=== PATIENT | male | born 1935 | race Caucasian/White ===

== ENCOUNTER 2019-12-16 10:11 | Inpatient (IN) | payer MEDICARE, MEDICAID ==
[~2019-12-16] VITALS: Ht 172.7 cm; Wt 66.2 kg
[2019-12-16] MEDS ORDERED: SODIUM CHLORIDE 0.9% 500 ML IV ONE (11:16)
[2019-12-16 11:21] LABS: BASOPHILS % 0.5 % (0.0-2.0); EOSINOPHILS % 0.1 % (0.0-5.0); HEMATOCRIT. 36.7 % (42.0-52.0); HEMOGLOBIN. 12.3 g/dL (14.0-18.0); LYMPHOCYTES % 21.7 % (20.0-50.0); MEAN CORPUSCULAR HEMOGLOBIN 29.7 pg (28.0-32.0); MEAN CORPUSCULAR VOLUME 88.5 fL (80.0-94.0); MEAN PLATELET VOLUME 9.3 fl (7.4-10.4); MONOCYTES % 10.1 % (2.0-8.0); NEUTROPHILS % 67.6 % (40.0-76.0); PLATELET 168 x1000/uL (130-400); RED BLOOD CELL COUNT 4.15 mill/uL (4.7-6.1); RED CELL DISTRIBUTION WIDTH 14.5 % (11.6-14.6)
[2019-12-16 11:27] LABS: CHLORIDE 107 mEq/L (98-107)
[2019-12-16] MEDS ORDERED: LEVOFLOXACIN 500MG PREMIX 100 ML IV ONE (11:30)
[2019-12-16 11:38] LABS: D-DIMER 16.7 mg/L FEU (<0.50); PROTHROMBIN TIME 11.3 sec (9.6-11.0)
[2019-12-16 11:47] LABS: CREATINE KINASE 1558 IU/L (39-308)
[2019-12-16] MEDS ORDERED: ACETAMINOPHEN 325MG TABLET PO PRN (12:45)
[2019-12-16] MEDS ORDERED: POTASSIUM CHLORIDE 20MEQ TABLET SR PO NR (12:45)
[2019-12-16] MEDS ORDERED: METOCLOPRAMIDE HCL 10MG/2ML VIAL IV PRN (12:45)
[2019-12-16 13:54] LABS: CLARITY URINE CLEAR (CLEAR); COLOR URINE DARK YELLOW (YELLOW); KETONES URINE NEGATIVE (NEGATIVE); LEUKOCYTE ESTERASE URINE 1+ (NEGATIVE); NITRITE URINE NEGATIVE (NEGATIVE); OCCULT BLOOD URINE 1+ (NEGATIVE); PH URINE 5.5 (4.5-8.0); PROTEIN URINE 2+ (NEGATIVE); SPECIFIC GRAVITY URINE 1.024 (1.005-1.030)
[2019-12-16] MEDS ORDERED: AZITHROMYCIN 500 MG TABLET PO NR (14:00)
[2019-12-16] MEDS ORDERED: CEFTRIAXONE 1 G PREMIX 50 ML IV NR (14:00)
[2019-12-16] MEDS ORDERED: SODIUM CHLORIDE 0.45% 1,000 ML IV SCH (15:30)
[2019-12-17] MEDS: LORAZEPAM 2MG/ML CPJ IV PRN ×2 (00:05→20:00)
[2019-12-17 06:27] VITALS: BP 112/68
[2019-12-17] MEDS ORDERED: DOCU250C69 MT (06:32)
[2019-12-17] MEDS ORDERED: DONE5TAB7 PO (06:33)
[2019-12-17] MEDS ORDERED: PSYL575P22 MT (06:35)
[2019-12-17] MEDS ORDERED: MULT-18 MT (06:35)
[2019-12-17] MEDS ORDERED: AMLO5TAB88 PO (06:35)
[2019-12-17] MEDS: AZITHROMYCIN 500 MG TABLET PO SCH (09:06)
[2019-12-17] MEDS: ENOXAPARIN 40MG/0.4ML SYR SUBCUT SCH (09:06)
[2019-12-17] MEDS: SODIUM CHLORIDE 0.45% 1,000 ML IV SCH (09:07)
[2019-12-17] MEDS ORDERED: POTASSIUM CHLORIDE 20MEQ TABLET SR PO SCH (10:00)
[2019-12-17 10:14] VITALS: BP 144/80
[2019-12-17] MEDS ORDERED: VANCOMYCIN 1500MG in DEXTROSE 5% WATER 250ML IV SCH (12:00)
[2019-12-17 13:05] VITALS: BP 115/73
[2019-12-17] MEDS ORDERED: CEFTRIAXONE 1,000 MG in DEXTROSE 5% WATER 50 ML IV SCH (17:00)
[2019-12-17 17:53] VITALS: BP 129/79
[2019-12-17] MEDS: CEFTRIAXONE 1,000 MG in DEXTROSE 5% WATER 50 ML IV SCH (18:07)
[2019-12-17 20:00] VITALS: BP 143/71
[2019-12-17 23:45] LABS: CHLORIDE 110 mEq/L (98-107)
[2019-12-17 23:54] LABS: CREATINE KINASE 484 IU/L (39-308)
[2019-12-18] VITALS: BP 149/46
[2019-12-18 04:00] VITALS: BP 162/49
[2019-12-18] MEDS: SODIUM CHLORIDE 0.45% 1,000 ML IV SCH ×2 (05:08→21:34)
[2019-12-18] MEDS ORDERED: VANCOMYCIN 1 G PREMIX 200 ML IV SCH (06:00)
[2019-12-18] MEDS: LORAZEPAM 2MG/ML CPJ IV PRN ×2 (07:29→21:34)
[2019-12-18 08:00] VITALS: BP 129/74
[2019-12-18] MEDS: AZITHROMYCIN 500 MG TABLET PO SCH (08:06)
[2019-12-18] MEDS: ENOXAPARIN 40MG/0.4ML SYR SUBCUT SCH (08:07)
[2019-12-18 12:00] VITALS: BP 152/77
[2019-12-18] MEDS ORDERED: LORAZEPAM 2MG/ML CPJ IV PRN (13:00)
[2019-12-18] MEDS: CEFTRIAXONE 1,000 MG in DEXTROSE 5% WATER 50 ML IV SCH (16:00)
[2019-12-18] MEDS ORDERED: POTASSIUM CHLORIDE 20MEQ/PACKET PO SCH (17:00)
[2019-12-18] MEDS ORDERED: LORAZEPAM 2MG/ML CPJ IV NR (17:30)
[2019-12-18 20:00] VITALS: BP 127/70
[2019-12-19] VITALS: BP 149/77
[2019-12-19] MEDS: LORAZEPAM 2MG/ML CPJ IV PRN (01:46)
[2019-12-19 04:00] VITALS: BP 110/67
[2019-12-19 08:00] VITALS: BP 156/69
[2019-12-19] MEDS: RISPERIDONE 1MG TABLET PO SCH (08:47)
[2019-12-19] MEDS: ENOXAPARIN 40MG/0.4ML SYR SUBCUT SCH (08:47)
[2019-12-19] MEDS: AZITHROMYCIN 500 MG TABLET PO SCH (08:47)
[2019-12-19 09:48] LABS: CHLORIDE 108 mEq/L (98-107)
[2019-12-19 12:00] VITALS: BP 112/66
[2019-12-19 16:00] VITALS: BP 132/87
[2019-12-19] MEDS ORDERED: POTASSIUM CHLORIDE 20MEQ/PACKET PO SCH (17:00)
[2019-12-19] MEDS: SODIUM CHLORIDE 0.45% 1,000 ML IV SCH (17:09)
[2019-12-19] MEDS: CEFTRIAXONE 1,000 MG in DEXTROSE 5% WATER 50 ML IV SCH (17:09)
[2019-12-19 20:00] VITALS: BP 137/76
[2019-12-20] VITALS: BP 138/90
[2019-12-20 04:00] VITALS: BP 117/62
[2019-12-20] MEDS: LORAZEPAM 2MG/ML CPJ IV PRN ×2 (06:36→15:41)
[2019-12-20 08:00] VITALS: BP 124/78
[2019-12-20] MEDS: RISPERIDONE 1MG TABLET PO SCH (10:27)
[2019-12-20] MEDS: AZITHROMYCIN 500 MG TABLET PO SCH (10:27)
[2019-12-20] MEDS: ENOXAPARIN 40MG/0.4ML SYR SUBCUT SCH (10:28)
[2019-12-20] MEDS: SODIUM CHLORIDE 0.45% 1,000 ML IV SCH ×2 (10:29→14:00)
[2019-12-20 12:00] VITALS: BP 120/84
[2019-12-20 16:00] VITALS: BP 131/76
[2019-12-20] MEDS ORDERED: CEFTRIAXONE 1 G PREMIX 50 ML IV SCH (17:00)
[2019-12-20 20:00] VITALS: BP 124/69
[2019-12-21] VITALS: BP 124/57
[2019-12-21 04:00] VITALS: BP 134/74
[2019-12-21 08:00] VITALS: BP 136/51
[2019-12-21] MEDS: ENOXAPARIN 40MG/0.4ML SYR SUBCUT SCH (08:48)
[2019-12-21] MEDS: RISPERIDONE 1MG TABLET PO SCH (08:48)
[2019-12-21 12:00] VITALS: BP 106/55
[2019-12-21] MEDS: SODIUM CHLORIDE 0.45% 1,000 ML IV SCH (13:32)
[2019-12-21] MEDS: LORAZEPAM 2MG/ML CPJ IV PRN (14:13)
[2019-12-21 16:00] VITALS: BP 166/79
[2019-12-21 20:00] VITALS: BP 127/66
[2019-12-22] VITALS: BP 107/62
[2019-12-22] MEDS: LORAZEPAM 2MG/ML CPJ IV PRN (03:19)
[2019-12-22 04:00] VITALS: BP 147/68
[2019-12-22] MEDS: SODIUM CHLORIDE 0.45% 1,000 ML IV SCH (06:00)
[2019-12-22 08:00] VITALS: BP 154/77
[2019-12-22] MEDS: RISPERIDONE 1MG TABLET PO SCH ×2 (09:00→09:05)
[2019-12-22] MEDS: ENOXAPARIN 40MG/0.4ML SYR SUBCUT SCH ×2 (09:00→09:06)
[2019-12-22 12:00] VITALS: BP 136/70
[2019-12-22 16:00] VITALS: BP 135/58
[2019-12-22 20:51] VITALS: BP 106/61
[2019-12-22] MEDS ORDERED: POTASSIUM CHLORIDE 20MEQ TABLET SR PO NR (23:00)
[2019-12-23 00:28] VITALS: BP 110/59
[2019-12-23] MEDS: SODIUM CHLORIDE 0.45% 1,000 ML IV SCH ×2 (03:29→22:00)
[2019-12-23 04:00] VITALS: BP 107/63
[2019-12-23 08:00] VITALS: BP 115/50
[2019-12-23] MEDS ORDERED: NA PHOS,M-B/NA PHOS,DI-BA ENEMA 118ML PR NR (08:30)
[2019-12-23] MEDS: ENOXAPARIN 40MG/0.4ML SYR SUBCUT SCH (09:03)
[2019-12-23] MEDS: RISPERIDONE 1MG TABLET PO SCH (09:03)
[2019-12-23 12:00] VITALS: BP 116/62
[2019-12-23 16:00] VITALS: BP 109/72
[2019-12-23 20:00] VITALS: BP 108/69
[2019-12-23] MEDS: LORAZEPAM 2MG/ML CPJ IM PRN (20:31)
[2019-12-24] VITALS: BP 132/50
[2019-12-24 04:00] VITALS: BP 137/52
[2019-12-24 08:00] VITALS: BP 120/63
[2019-12-24] MEDS: ENOXAPARIN 40MG/0.4ML SYR SUBCUT SCH (08:42)
[2019-12-24] MEDS: RISPERIDONE 1MG TABLET PO SCH (08:42)
[2019-12-24] MEDS: LORAZEPAM 2MG/ML CPJ IM PRN (10:56)
[2019-12-24 12:00] VITALS: BP 133/73
[2019-12-24] MEDS: HALOPERIDOL LACTATE 5MG/ML VIAL IM PRN (15:44)
[2019-12-24 16:00] VITALS: BP 135/64
[2019-12-24] MEDS: SODIUM CHLORIDE 0.45% 1,000 ML IV SCH (17:03)
[2019-12-24 20:50] VITALS: BP 123/69
[2019-12-25 00:50] VITALS: BP 130/66
[2019-12-25 04:00] VITALS: BP 132/75
[2019-12-25 05:25] LABS: CHLORIDE 105 mEq/L (98-107)
[2019-12-25 08:00] VITALS: BP 141/82
[2019-12-25] MEDS: ENOXAPARIN 40MG/0.4ML SYR SUBCUT SCH (09:03)
[2019-12-25 12:00] VITALS: BP 174/76
[2019-12-25 12:26] LABS: BASOPHILS % 0.8 % (0.0-2.0); EOSINOPHILS % 0.1 % (0.0-5.0); HEMOGLOBIN. 12.7 g/dL (14.0-18.0); LYMPHOCYTES % 17.4 % (20.0-50.0); MEAN CORPUSCULAR HEMOGLOBIN 29.6 pg (28.0-32.0); MEAN CORPUSCULAR VOLUME 86.4 fL (80.0-94.0); MEAN PLATELET VOLUME 7.8 fl (7.4-10.4); MONOCYTES % 8.5 % (2.0-8.0); NEUTROPHILS % 73.2 % (40.0-76.0); PLATELET 381 x1000/uL (130-400); RED BLOOD CELL COUNT 4.28 mill/uL (4.7-6.1); RED CELL DISTRIBUTION WIDTH 14.1 % (11.6-14.6)
[2019-12-25 16:00] VITALS: BP 163/69
[2019-12-25] MEDS ORDERED: POTASSIUM CHLORIDE 20MEQ TABLET SR PO NR (16:30)
[2019-12-25] MEDS ORDERED: CLONIDINE 0.1MG TABLET PO PRN (16:30)
[2019-12-25 20:00] VITALS: BP 115/70
[2019-12-25] MEDS: SODIUM CHLORIDE 0.45% 1,000 ML IV SCH (20:21)
[2019-12-26 00:13] VITALS: BP 91/45
[2019-12-26 04:00] VITALS: BP 106/64
[2019-12-26 08:00] VITALS: BP 133/77
[2019-12-26] MEDS: ENOXAPARIN 40MG/0.4ML SYR SUBCUT SCH (08:38)
[2019-12-26 12:13] VITALS: BP 127/66
[2019-12-26] MEDS ORDERED: LORAZEPAM 2MG/ML CPJ IM PRN (13:30)
[2019-12-26] MEDS: HALOPERIDOL LACTATE 5MG/ML VIAL IM PRN (15:46)
[2019-12-26] MEDS: SODIUM CHLORIDE 0.45% 1,000 ML IV SCH (15:54)
[2019-12-26 16:31] VITALS: BP 94/68
[2019-12-26 20:00] VITALS: BP 107/64
[2019-12-27] VITALS: BP 119/92
[2019-12-27 04:00] VITALS: BP 96/59
[2019-12-27 08:00] VITALS: BP 95/61
[2019-12-27] MEDS: ENOXAPARIN 40MG/0.4ML SYR SUBCUT SCH (08:57)
[2019-12-27] MEDS: SODIUM CHLORIDE 0.45% 1,000 ML IV SCH (09:09)
[2019-12-27 12:00] VITALS: BP_SYST 110; BP_SYST 97; BP_DIAS 59; BP_DIAS 60
[2019-12-27 16:00] VITALS: BP 110/59
[2019-12-27 20:00] VITALS: BP 116/53
[2019-12-28] VITALS: BP 103/60
[2019-12-28] MEDS: SODIUM CHLORIDE 0.45% 1,000 ML IV SCH ×2 (02:00→20:52)
[2019-12-28 04:00] VITALS: BP 95/54
[2019-12-28 08:00] VITALS: BP 106/69
[2019-12-28] MEDS: ENOXAPARIN 40MG/0.4ML SYR SUBCUT SCH (09:45)
[2019-12-28 12:00] VITALS: BP 115/70
[2019-12-28] MEDS ORDERED: BISACODYL 10MG SUPP PR SCH (13:30)
[2019-12-28 16:00] VITALS: BP 130/78
[2019-12-28] MEDS ORDERED: LORAZEPAM 2MG/ML CPJ IV PRN (19:00)
[2019-12-28 20:00] VITALS: BP 108/39
[2019-12-28 20:50] LABS: CHLORIDE 103 mEq/L (98-107); EOSINOPHILS % 0.2 % (0.0-5.0); HEMATOCRIT. 36.1 % (42.0-52.0); HEMOGLOBIN. 12.1 g/dL (14.0-18.0); LYMPHOCYTES % 14.8 % (20.0-50.0); MEAN CORPUSCULAR VOLUME 86.3 fL (80.0-94.0); MEAN PLATELET VOLUME 7.8 fl (7.4-10.4); MONOCYTES % 7.8 % (2.0-8.0); NEUTROPHILS % 76.2 % (40.0-76.0); PLATELET 368 x1000/uL (130-400); RED BLOOD CELL COUNT 4.19 mill/uL (4.7-6.1); RED CELL DISTRIBUTION WIDTH 14.2 % (11.6-14.6)
[2019-12-29] VITALS: BP 103/57
[2019-12-29 04:00] VITALS: BP 123/72
[2019-12-29 08:00] VITALS: BP 152/84
[2019-12-29] MEDS: ENOXAPARIN 40MG/0.4ML SYR SUBCUT SCH (10:09)
[2019-12-29 12:08] VITALS: BP 148/76
[2019-12-29] MEDS ORDERED: POTASSIUM CHLORIDE 20MEQ TABLET SR PO SCH (15:00)
[2019-12-29 16:00] VITALS: BP 130/88
[2019-12-29] MEDS ORDERED: POTASSIUM CHLORIDE INJ 40 MEQ in DEXT 5% WATER 250 ML IV SCH (16:00)
[2019-12-29] MEDS ORDERED: BISACODYL 10MG SUPP PR PRN (16:30)
[2019-12-29] MEDS: HALOPERIDOL LACTATE 5MG/ML VIAL IM PRN (18:04)
[2019-12-29] MEDS: SODIUM CHLORIDE 0.45% 1,000 ML IV SCH (18:38)
[2019-12-29 20:00] VITALS: BP 100/58
[2019-12-29] MEDS: LORAZEPAM 2MG/ML CPJ IV PRN (21:59)
[2019-12-30] VITALS: BP 92/65
[2019-12-30 04:00] VITALS: BP 119/74
[2019-12-30 08:03] VITALS: BP 123/71
[2019-12-30] MEDS: ENOXAPARIN 40MG/0.4ML SYR SUBCUT SCH (09:18)
[2019-12-30 11:59] VITALS: BP 127/68
[2019-12-30 16:04] VITALS: BP 128/79
[2019-12-30] MEDS: DOCUSATE SODIUM 250MG CAPSULE PO SCH (18:00)
[2019-12-30] MEDS: POTASSIUM CHLORIDE 20MEQ TABLET SR PO SCH (18:00)
[2019-12-30 20:00] VITALS: BP 121/78
[2019-12-30] MEDS: SODIUM CHLORIDE 0.45% 1,000 ML IV SCH (20:45)
[2019-12-30] MEDS: LORAZEPAM 2MG/ML CPJ IV PRN (20:45)
[2019-12-31] VITALS: BP 122/75
[2019-12-31 04:00] VITALS: BP 128/84
[2019-12-31 08:15] VITALS: BP 127/75
[2019-12-31] MEDS: DOCUSATE SODIUM 250MG CAPSULE PO SCH ×2 (09:00→09:21)
[2019-12-31] MEDS: POTASSIUM CHLORIDE 20MEQ TABLET SR PO SCH ×2 (09:00→09:21)
[2019-12-31] MEDS: ENOXAPARIN 40MG/0.4ML SYR SUBCUT SCH (09:21)
[2019-12-31 12:00] VITALS: BP 134/75
[2019-12-31 13:41] VITALS: BP 134/75
[2019-12-31 15:32] VITALS: BP 134/75
== END 2019-12-31 16:05 | DRG 871 ==
LOC: ER 10:11 → 7EST 11:05 → EDBEDREQ 11:08 → ENRESERV 12-17 04:51 → 7WST 12-31 04:16
PROVIDERS: ADMIT Internal Medicine; ATTEND Internal Medicine
DX: A41.89 Other specified sepsis (principal); U07.1 COVID-19; J12.89 Other viral pneumonia; E43 Unspecified severe protein-calorie malnutrition; J96.00 Acute respiratory failure, unspecified whether with hypoxia or hypercapnia; N17.0 Acute kidney failure with tubular necrosis; M62.82 Rhabdomyolysis; D68.59 Other primary thrombophilia; Z66 Do not resuscitate; D64.9 Anemia, unspecified; I12.9 Hypertensive chronic kidney disease with stage 1 through stage 4 chronic kidney disease, or unspecified chronic kidney disease; N18.9 Chronic kidney disease, unspecified; E87.6 Hypokalemia; F03.90 Unspecified dementia, unspecified severity, without behavioral disturbance, psychotic disturbance, mood disturbance, and anxiety; R62.7 Adult failure to thrive; Z68.22 Body mass index [BMI] 22.0-22.9, adult; Z78.1 Physical restraint status
CPT/HCPCS: 36415; 71045; 80048; 80053; 80202; 81003; 82550; 82728; 83605; 83615; 83880; 84145; 84484; 85025; 85379; 85384; 86140; 87635; 87804; 93005; 99291; J0696; J1630; J1650; J1956; J2060; J3370; J3480; J7040; J7060; U0003-CS

== ENCOUNTER 2021-07-11 03:02 | Inpatient (IN) | payer MEDICARE, MEDICAID ==
[2021-07-11] VITALS (10 sets, daily range): BP systolic 74–205; BP diastolic 47–75
[~2021-07-11] VITALS: Ht 180.3 cm; Wt 85.4 kg
[2021-07-11] MEDS ORDERED: SODIUM CHLORIDE 0.9% 1000ML BAG (SEPSIS BOLUS) IV ONE (04:00)
[2021-07-11] MEDS ORDERED: PROPOFOL 10MG/ML 100ML 100 ML IV SCH (04:00)
[2021-07-11] MEDS ORDERED: VANCOMYCIN 1 G PREMIX 200 ML IV ONE (04:00)
[2021-07-11] MEDS ORDERED: PIPERACILLIN/TAZ 3.375G PREMIX 50 ML IV ONE (04:00)
[2021-07-11] MEDS ORDERED: NOREPINEPHRINE 8MG/250ML PMX 250 ML IV ONE (04:45)
[2021-07-11] MEDS ORDERED: MIDAZOLAM 100MG/100ML PMX 100 ML IV PRN (04:45)
[2021-07-11 04:57] LABS: HEMATOCRIT. 42.9 % (42.0-52.0); HEMOGLOBIN. 13.3 g/dL (14.0-18.0); MEAN CORPUSCULAR HEMOGLOBIN 28.8 pg (28.0-32.0); MEAN CORPUSCULAR VOLUME 93.3 fL (80.0-94.0); MEAN PLATELET VOLUME 7.8 fl (7.4-10.4); PLATELET 554 x1000/uL (130-400); RED CELL DISTRIBUTION WIDTH 15.7 % (11.6-14.6)
[2021-07-11] MEDS ORDERED: NOREPINEPHRINE 8 MG in DEXTROSE 5% WATER 250 ML IV PRN ×2 (05:00→07:30)
[2021-07-11 05:03] LABS: CHLORIDE 111 mEq/L (98-107)
[2021-07-11] MEDS ORDERED: PHENYLEPHRINE 50 MG in DEXT 5% WATER 245 ML IV STA (05:20)
[2021-07-11] MEDS ORDERED: PHENYLEPHRINE 50 MG in DEXTROSE 5% WATER 250 ML IV PRN (06:00)
[2021-07-11] MEDS ORDERED: MIDAZOLAM HCL 100 MG in SODIUM CHLORIDE 0.9% 100 ML IV PRN (06:00)
[2021-07-11] MEDS ORDERED: ALBUTEROL (0.083%) 2.5MG/3ML NEB HHN STA (06:09)
[2021-07-11] MEDS ORDERED: SODIUM BICARBONATE 8.4% 1 MEQ/ML 50ML SYR IV ONE (06:15)
[2021-07-11] MEDS ORDERED: NOREPINEPHRINE 8 MG in DEXT 5% WATER 242 ML IV STA (06:19)
[2021-07-11] MEDS ORDERED: DEXTROSE 50% WATER 50ML SYRINGE IV ONE (06:30)
[2021-07-11 06:42] LABS: PLATELET ESTIMATE NORMAL
[2021-07-11] MEDS ORDERED: CLONIDINE 0.1MG TABLET PO PRN (07:15)
[2021-07-11] MEDS ORDERED: DOCUSATE SODIUM 100MG CAPSULE PO PRN (07:15)
[2021-07-11] MEDS ORDERED: PIPERACILLIN/TAZ 3.375G PREMIX 50 ML IV NR (07:15)
[2021-07-11] MEDS ORDERED: ACETAMINOPHEN 325MG TABLET PO PRN ×2 (07:15)
[2021-07-11] MEDS ORDERED: ONDANSETRON HCL 4MG/2ML INJ IV PRN (07:15)
[2021-07-11] MEDS ORDERED: MAGNESIUM/ALUMINUM HYDROXIDE/SIMETHICONE 30ML UDC PO PRN (07:15)
[2021-07-11] MEDS ORDERED: IPRATROPIUM/ALBUTEROL 0.5-3(2.5)MG/3ML NEB NEB PRN (07:15)
[2021-07-11] MEDS ORDERED: GUAIFENESIN 200MG/10ML SUGAR FREE UDC PO PRN (07:15)
[2021-07-11] MEDS ORDERED: METHYLPREDNISOLONE SOD SUCC 125 MG/2 ML VIAL IV SCH (07:30)
[2021-07-11] MEDS ORDERED: IPRATROPIUM/ALBUTEROL 0.5-3(2.5)MG/3ML NEB HHN SCH (08:00)
[2021-07-11] MEDS ORDERED: ENOXAPARIN 40MG/0.4ML SYR SUBCUT SCH (08:00)
[2021-07-11] MEDS ORDERED: NOREPINEPHRINE 8 MG in DEXT 5% WATER 242 ML IV PRN (08:00)
[2021-07-11 08:10] LABS: CLARITY URINE CLOUDY (CLEAR); COLOR URINE ORANGE (YELLOW); KETONES URINE NEGATIVE (NEGATIVE); LEUKOCYTE ESTERASE URINE 1+ (NEGATIVE); NITRITE URINE POSITIVE (NEGATIVE); OCCULT BLOOD URINE 2+ (NEGATIVE); PROTEIN URINE 1+ (NEGATIVE); SPECIFIC GRAVITY URINE 1.022 (1.005-1.030)
[2021-07-11] MEDS ORDERED: VANCOMYCIN 750 MG PREMIX 150 ML IV NR (08:30)
[2021-07-11] MEDS ORDERED: PHENYLEPHRINE 50 MG in DEXT 5% WATER 245 ML IV PRN (08:30)
[2021-07-11 08:33] LABS: *AMPHETAMINES SCREEN URINE NEGATIVE (NEGATIVE); *COCAINE SCREEN URINE NEGATIVE (NEGATIVE); METHADONE URINE SCREEN NEGATIVE (NEGATIVE); OPIATES URINE SCREEN NEGATIVE (NEGATIVE); PHENCYCLIDINE URINE SCREEN NEGATIVE (NEGATIVE)
[2021-07-11] MEDS: PHENYLEPHRINE 50 MG in DEXT 5% WATER 245 ML IV PRN ×3 (08:33→10:30)
[2021-07-11 08:34] LABS: *BARBITURATES SCREEN URINE NEGATIVE (NEGATIVE); *BENZODIAZEPINES SCREEN URINE NEGATIVE (NEGATIVE); CANNABINOID URINE SCREEN NEGATIVE (NEGATIVE)
[2021-07-11 08:41] LABS: INR 1.6; PROTHROMBIN TIME 16.8 sec (9.6-11.0)
[2021-07-11] MEDS ORDERED: VASOPRESSIN 20 UNIT in SODIUM CHLORIDE 0.9% 99 ML IV PRN (08:45)
[2021-07-11] MEDS ORDERED: PANTOPRAZOLE SODIUM 40 MG/VIAL IV SCH (09:00)
[2021-07-11] MEDS ORDERED: ASPIRIN 325MG TABLET PO SCH (09:00)
[2021-07-11] MEDS ORDERED: SODIUM CHLORIDE 0.9% 1,000 ML IV ONE (09:00)
[2021-07-11] MEDS ORDERED: SODIUM CHLORIDE 0.9% 1,000 ML IV NR (09:00)
[2021-07-11] MEDS: DEXT 5%/0.45% NACL 1000ML 1,000 ML IV SCH ×2 (09:03→17:12)
[2021-07-11] MEDS ORDERED: ETOMIDATE 2MG/ML 10ML VIAL IV ONE (09:07)
[2021-07-11] MEDS ORDERED: SODIUM CHLORIDE 0.9% 10ML VIAL ONE (09:07)
[2021-07-11] MEDS ORDERED: VECURONIUM BROMIDE 10 MG/VIAL IV ONE (09:07)
[2021-07-11 09:11] LABS: VITAMIN B12 SERUM 665 pg/mL (211-911)
[2021-07-11 09:15] LABS: FOLIC ACID (FOLATE) SERUM > 20.00 ng/mL (>5.38)
[2021-07-11 10:01] LABS: BG CARBOXYHEMOGLOBIN 0.3 % (0.5-1.5); BG DEOXYHEMOGLOBIN 12.2 % (0.0-5.0); BG FRACTION INSPIRED OXYGEN 100; BG HCO3 ACT 12.2 mmol/L (22.0-26.0); BG METHEMOGLOBIN 0.2 % (0.0-1.5); BG OXYGEN SATURATION 87.7 % (92.0-98.5); BG OXYHEMOGLOBIN 87.3 % (94.0-97.0); BG PCO2 61.6 mmHg (35.0-45.0); BG PH 6.915 (7.350-7.450); BG PO2 75.7 mmHg (75.0-100.0); BG SAMPLE SITE RIGHT RADIAL; BG TOTAL HEMOGLOBIN 14.4 g/dL (12.0-18.0); BG VENT MODE VENT - AC
[2021-07-11] MEDS ORDERED: SODIUM BICARBONATE 8.4% 1 MEQ/ML 50ML SYR IV SCH (10:30)
[2021-07-11] MEDS ORDERED: SODIUM BICARBONATE 150 MEQ in DEXTROSE 5% WATER 1,000 ML IV SCH (10:30)
[2021-07-11] MEDS: PHENYLEPHRINE 100 MG in DEXT 5% WATER 240 ML IV PRN ×2 (13:32→19:32)
[2021-07-11] MEDS: NOREPINEPHRINE 32 MG in DEXT 5% WATER 218 ML IV PRN ×2 (13:32→19:32)
[2021-07-11] MEDS ORDERED: PIPERACILLIN/TAZOBACTAM 3.375G in DEXT 5% WATER 50ML IV SCH (14:00)
[2021-07-11] MEDS: EPINEPHRINE 10 MG in SODIUM CHLORIDE 0.9% 240 ML IV PRN ×5 (14:45→22:18)
[2021-07-12] MEDS ORDERED: VANCOMYCIN 1 G PREMIX 200 ML IV SCH ×2 (06:00→07:00)
== END 2021-07-11 23:27 | DRG 871 ==
LOC: ER 03:02 → MICUNO 05:22 → EDBEDREQTM 05:29 → EDBEDREQSVC 05:29 → EDBEDREQ 05:29 → SUPCPDRO 07:12 → ENRESERV 11:06
PROVIDERS: ADMIT Internal Medicine; ATTEND Internal Medicine
PROC: 5A1935Z Respiratory Ventilation, Less than 24 Consecutive Hours (ICD-10-PCS; principal; 2021-07-11)
PROC: 0BH17EZ Insertion of Endotracheal Airway into Trachea, Via Natural or Artificial Opening (ICD-10-PCS; 2021-07-11)
PROC: 06HM33Z Insertion of Infusion Device into Right Femoral Vein, Percutaneous Approach (ICD-10-PCS; 2021-07-11)
DX: A41.9 Sepsis, unspecified organism (principal); J96.01 Acute respiratory failure with hypoxia; R65.21 Severe sepsis with septic shock; J96.02 Acute respiratory failure with hypercapnia; G92.8 Other toxic encephalopathy; N39.0 Urinary tract infection, site not specified; E44.1 Mild protein-calorie malnutrition; N17.9 Acute kidney failure, unspecified; N18.9 Chronic kidney disease, unspecified; E11.22 Type 2 diabetes mellitus with diabetic chronic kidney disease; I13.10 Hypertensive heart and chronic kidney disease without heart failure, with stage 1 through stage 4 chronic kidney disease, or unspecified chronic kidney disease; E87.5 Hyperkalemia; F03.90 Unspecified dementia, unspecified severity, without behavioral disturbance, psychotic disturbance, mood disturbance, and anxiety; Z20.822 Contact with and (suspected) exposure to COVID-19; Z68.26 Body mass index [BMI] 26.0-26.9, adult; Z86.16 Personal history of COVID-19; K63.89 Other specified diseases of intestine
CPT/HCPCS: 36415; 36600; 71045; 74176; 80053; 80305; 81003; 82375; 82607; 82746; 82805; 82962; 83540; 83550; 83605; 83880; 84145; 84443; 84484; 85025; 93005; 93970; 94002; 94003; 99291; C9113; C9803; J1650; J2370; J2543; J2704; J2930; J3370; J3490; J7030; J7050; J7060; J7070; U0003; U0005